=== PATIENT | female | born 1950 | race Caucasian/White ===

== ENCOUNTER 2023-01-27 16:24 | Inpatient (IN) | payer MEDICARE ==
[~2023-01-27] VITALS: Ht 167.6 cm; Wt 61.2 kg
--- NOTE | 2023-01-27 16:44 | NUR ---
TIO JOHNSON FROM [facility] FOR "AGGRESSIVE" BEHAVIOR. THE PATIENT IS CALM AND COOPERATIVE AT THIS TIME. DENIES PAIN. IN ROOM AIR AND DENIES SOB. RESPIRATION REGULAR AND UNLABORED. SITTER AT THE BEDSIDE. WILL CONTINUE TO MONITOR THE PATIENT.
--- NOTE | 2023-01-27 16:46 | NUR ---
URINE COLLECTED AND SENT TO THE LAB
--- NOTE | 2023-01-27 16:48 | NUR ---
COVID SWAB TAKEN AND SEND TO LAB
[2023-01-27 17:23] LABS: BASOPHILS # (AUTO) 0.1 K/uL (0.0-0.2); BASOPHILS % (AUTO) 0.9 % (0.0-2.0); EOSINOPHILS % (AUTO) 0.6 % (0.0-6.0); HEMATOCRIT 36 % (33-45); HEMOGLOBIN 11.7 g/dL (11.5-14.8); LYMPHOCYTES # (AUTO) 2.8 K/uL (0.8-4.8); LYMPHOCYTES % (AUTO) 32.2 % (20.0-44.0); MEAN CORPUSCULAR HGB CONC 33 g/dl (31.0-36.0); MEAN CORPUSCULAR VOLUME 100 fL (82-100); MONOCYTES # (AUTO) 0.9 K/uL (0.1-1.30); MONOCYTES % (AUTO) 9.8 % (2.0-12.0); NEUTROPHILS % (AUTO) 56.5 % (43.0-81.0); PLATELET COUNT (AUTO) 59 K/uL (150-450); RED BLOOD CELL COUNT(AUTO) 3.55 MIL/uL (4.0-5.2); WHITE BLOOD COUNT (AUTO) 8.8 K/uL (4.3-11.0)
[2023-01-27 17:27] LABS: BILIRUBIN,URINE NEGATIVE (NEGATIVE); COLOR,URINE YELLOW (YELLOW); LEUKOCYTE ESTERASE ,URINE TRACE (NEGATIVE); NITRITE, URINE NEGATIVE (NEGATIVE); PH,URINE 6.5 (5.0-8.0); PROTEIN,URINE NEGATIVE (NEGATIVE); UGLUCOSE NEGATIVE (NEGATIVE); UROBILINOGEN,URINE 0.2 EU/dL (0.2)
[2023-01-27 17:49] LABS: ALANINE AMINOTRANSFERASE 20 U/L (12-78); ALBUMIN 3.2 g/dL (3.4-5.0); ALKALINE PHOSPHATASE 85 U/L (46-116); ASPARTATE AMINOTRANSFERASE 16 U/L (15-37); BILIRUBIN,DIRECT 0.1 mg/dL (0.0-0.2); BILIRUBIN,TOTAL 0.2 mg/dL (0.2-1.0); CARBON DIOXIDE 25 mmol/L (21-32); CHLORIDE 107 mmol/L (98-107); GLUCOSE 146 mg/dL (74-106); POTASSIUM 4.1 mmol/L (3.5-5.1); SODIUM SERUM 141 mmol/L (136-145); TOTAL PROTEIN, SERUM 6.7 g/dL (6.4-8.2); UREA NITROGEN, BLOOD 22 mg/dL (7-18)
[2023-01-27] MEDS ORDERED: TEMA15CA5 PO (17:49)
[2023-01-27] MEDS ORDERED: HYDR-4076 PO (17:49)
[2023-01-27] MEDS ORDERED: MAGN400O6 PO (17:49)
[2023-01-27] MEDS ORDERED: BISA10SU11 RC (17:49)
[2023-01-27] MEDS ORDERED: METO25TA6 PO (17:49)
[2023-01-27] MEDS ORDERED: LORA-259 PO (17:49)
[2023-01-27] MEDS ORDERED: ACET325T53 PO (17:49)
[2023-01-27] MEDS ORDERED: DIVA500T2 PO (17:49)
[2023-01-27] MEDS ORDERED: RISP1TAB7 PO (17:49)
[2023-01-27] MEDS ORDERED: DOCU-141 PO (17:49)
[2023-01-27] MEDS ORDERED: CRAN400C PO (17:49)
[2023-01-27] MEDS ORDERED: BENZ0.5T43 PO (17:49)
[2023-01-27] MEDS ORDERED: MINE133E RC (17:49)
[2023-01-27 17:54] LABS: ALCOHOL, BLOOD < 3 mg/dL (0-10)
[2023-01-27 17:59] LABS: BACTERIA,URINE Moderate /HPF (None Seen); SQUAMOUS EPITHELIAL CELL,UR Rare /HPF (None Seen)
--- NOTE | 2023-01-27 18:14 | NUR ---
PER PATIENT - [phone] CANDACE KAHN
[2023-01-27 18:18] LABS: LYMPHOCYTES % (MANUAL) 32 % (16-48); MONOCYTES % (MANUAL) 14 % (0-11.0); NEUTROPHILS % (MANUAL) 54 (42-76)
--- NOTE | 2023-01-27 18:18 | NUR ---
PT GETTING INCREASINGLY AGITATED CLAIMS SHE "DOESNT WANT A LOBOTOMY PERFORMED" ON HER AND ATTEMPTING TO GET OUT OF BED, SITTER WAITING BEDSIDE.
--- NOTE | 2023-01-27 18:27 | NUR ---
FLOR BOYKIN SISTER - [phone]
[2023-01-27] MEDS ORDERED: OLANZAPINE 10 MG VIAL IM ONE ×2 (18:30→18:39)
[2023-01-27] MEDS ORDERED: LORAZEPAM INJ 2 MG/ML VIAL IM ONE (18:30)
[2023-01-27] MEDS ORDERED: LORAZEPAM INJ 2 MG/ML VIAL ONE (18:40)
--- NOTE | 2023-01-27 21:30 | NUR ---
PT AGGRESSIVE, TRYING TO GET OUT OF BED AND STATES "I DON'T WANT THE SURGEONS TO DO AN OPERATION ON ME" SITTER PRECAUTIONS IN PLACE.
--- NOTE | 2023-01-27 21:33 | NUR ---
PT PROVIDED WITH WARM BLANKET FOR COMFORT.
--- NOTE | 2023-01-28 | NUR ---
PT PROVIDED WITH WATER AND JUICE FOR COMFORT.
[2023-01-28] MEDS ORDERED: LORAZEPAM INJ 2 MG/ML VIAL IM ONE (01:30)
[2023-01-28] MEDS ORDERED: LORAZEPAM INJ 2 MG/ML VIAL ONE (01:31)
--- NOTE | 2023-01-28 03:31 | NUR ---
REPORT GIVEN TO BEN RODRIGUEZ FOR CONTINUATION OF CARE.
--- NOTE | 2023-01-28 03:43 | NUR ---
pt to gps via [facility].
[2023-01-28 03:58] VITALS: BP 128/79; TEMP 98.4; O2SAT 98
--- NOTE | 2023-01-28 03:58 | NUR ---
RN NOTES : ADMISSION NOTES: ADMITTED THIS 81Y/O FEMALE PATIENT ADMITTED FROM [facility] ED , INITIALLY FROM [facility] ADMITTED TO 5150 HOLD PER HOLD, DEMENTIA,PSYCHOSIS AND DEPRESSIVE DELUSIONAL BEHAVIOR ,UPON FACE TO FACE ASSESSMENT PATIENT IS A&OX1,2 , PARANOID,DELUSIONAL ,ANXIOUS EASILY AGITATED ,TALKING TO SELF ,DENIES SI /HI AT THIS TIME, PT. IS POOR HISTORIAN, POOR INSIGHT ,POOR JUDGEMENT , BOTH MD AWARE AND NOTIFIED OF THE ADMISSION, BELONGINGS CONTRABAND WERE DONE ,PT. REFUSED SIGNS ADMISSION CONSENT PAPER DUE TO CONFUSED , PT. RIGHTS DISCUSS BY BULLET CASTING OPERATOR , PROVIDE THE PT. WITH HANDBOOK, AND MEDICATIONS GUIDE, ENVIRONMENTAL SAFETY CHECK DONE.THE BED IS LOWER POSITION .WILL CONTINUE TO MONITOR FOR SAFETY. Addendum: 01/28/23 at 0642 by CAMDEN SUERO RN 72 Y/O FEMALE
[2023-01-28] MEDS ORDERED: LORAZEPAM 0.5 MG TABLET PO PRN (04:00)
[2023-01-28] MEDS ORDERED: MAGNESIUM HYDROXIDE 30 ML UDC PO PRN ×2 (04:00→07:30)
[2023-01-28] MEDS ORDERED: ACETAMINOPHEN 325 MG TABLET PO PRN ×2 (04:00→07:30)
[2023-01-28] MEDS ORDERED: BLOOD SUGAR DIAGNOSTIC 1 EACH STRIP IN ONE (04:00)
[2023-01-28] MEDS ORDERED: MAG HYDROX/AL HYDROX/SIMETH 30 ML UDC PO PRN (04:00)
[2023-01-28] MEDS ORDERED: hydrALAZINE HCL 25 MG TABLET PO PRN (07:30)
[2023-01-28] MEDS ORDERED: MINERAL OIL 133 ML (PYXIS) 1 EA ENEMA RC PRN (07:30)
[2023-01-28] MEDS ORDERED: BISACODYL SUPP (10 MG) 10 MG/SUPP.RECT SUPP.RECT RC PRN (07:30)
[2023-01-28 08:00] VITALS: BP_SYST 124; BP_SYST 151; BP_DIAS 68; BP_DIAS 71; TEMP 97.7; TEMP 97.8; O2SAT 96
[2023-01-28] MEDS ORDERED: Medication Not On Formulary EA (Cranberry 400 MG) PO SCH (09:00)
[2023-01-28] MEDS: DOCUSATE SODIUM 100 MG CAPSULE PO SCH (09:34)
[2023-01-28] MEDS: METOPROLOL TARTRATE 25 MG TABLET PO SCH ×2 (09:35→17:30)
--- NOTE | 2023-01-28 09:36 | NUR ---
WAYNE Initial Discharge Note: Patient currently resides at assisted living located at [address] [place], [place] [id number]; ([phone]). WAYNE will call facility to see if pt is welcomed back. WAYNE will contact pt's sister in law Gabriel ([phone]) to discuss treatment/discharge plan. WAYNE will work with the MD, family, and treatment team to help coordinate appropriate discharge.
--- NOTE | 2023-01-28 09:36 | NUR ---
WAYNE Clinical Note: Pt placed on a 5150 hold for GD. Per hold, pt was aggressive at the facility and was acting bizarre. Patient currently resides at [facility] living located at [address] [place] [address]; ([phone]). WAYNE will call facility to see if pt is welcomed back. WAYNE will contact pt's sister in law Nery ([phone]) to discuss treatment/discharge plan.
--- NOTE | 2023-01-28 09:37 | NUR ---
Facility Contact: Pt currently resides at [facility] [address] [place] [address] ([phone]). SW spoke with admin Nneka who stated pt is welcomed back upon discharge.
--- NOTE | 2023-01-28 11:15 | NUR ---
MOTION PICTURE CRITIC NOTE PATIENT WAS TRANSFERRED TO ROOM#218-B, PER PATIENT REQUEST TO BE IN DIFFERENT ROOM WITH DIFFERENT ROOM- PARTNER. NOTIFIED TO PATIENT'S SISTER FLOR.
[2023-01-28] MEDS: DIVALPROEX SODIUM 125 MG CAP.SPRINK PO SCH ×2 (14:09→21:01)
[2023-01-28] MEDS: risperiDONE 1 MG TABLET PO SCH ×2 (14:10→17:28)
[2023-01-28 16:00] VITALS: BP_SYST 131; BP_SYST 149; BP_DIAS 71; BP_DIAS 87; TEMP 97.8; TEMP 98.6; O2SAT 97
[2023-01-28] MEDS: BENZTROPINE MESYLATE (1 MG) 1 MG TABLET PO SCH (17:30)
--- NOTE | 2023-01-28 18:40 | NUR ---
YARN SIZER CLOSING NOTE PATIENT AWAKE, ALERT AND ORIENTED X3. COOPERATIVE, TOOK ALL HER MEDICATIONS. CALM, DENIES PAIN AT PRESENT. AMBULATORY. NO S/S OF DISCOMFORT NOTED. SAFETY MEASURES IN PLACE: BED LOCKED TO THE LOWEST POSITION, TABLE WITHIN REACH. I WILL ENDORSE TO THE FOLLOWING NURSE FOR PERLA.
[2023-01-28 20:00] VITALS: BP 114/76; TEMP 97.6; O2SAT 97
--- NOTE | 2023-01-28 22:27 | NUR ---
MAINT MECHANIC NOTE: RECEIVED PATIENT IN BED RESTING QUIETLY AWAKE.A/OX2 , ABLE TO MAKE NEEDS KNOWN. BREATHING NON-LABORED WITH EQUAL RISE AND FALL OF THE CHEST.PATIENT IS DISPLAYING WITH EQUAL RISE AND FALL OF THE CHEST,NO S/S OF APPARENT DISTRESS. PATIENT IS ANXIOUS COOPERATIVE / UNCOOPERATIVE AT A TIMES, DISORIENTED, HYPERVERBAL LOUD TALKING TO SELF CONFUSED, PARANOID EASILY AGITATED, AGGRESSIVE, GUARDED, NEEDY, ATTENTION SEEKING, AND SUSPICIOUS. PATIENT IS MEDICATION COMPLIANT. NEEDS FREQUENT REDIRECTION. DENIES SI/HI BUT IS CONFUSED AT THIS TIME. SAFETY PRECAUTIONS MAINTAINED WILL CONTINUE TO MONITOR Q 15 MINUTES FOR SAFETY AND BEHAVIOR.
[2023-01-29 06:45] LABS: ALBUMIN 2.9 g/dL (3.4-5.0); BILIRUBIN,TOTAL 0.2 mg/dL (0.2-1.0); CREATININE 0.9 mg/dL (0.6-1.3); POTASSIUM 4.4 mmol/L (3.5-5.1); TOTAL PROTEIN, SERUM 6.2 g/dL (6.4-8.2)
[2023-01-29 06:49] LABS: CHOLESTEROL 188 mg/dL (<200); HDL CHOLESTEROL 77 mg/dL (40-60); LDL 76 mg/dL (0-99); TRIGLYCERIDES 108 mg/dL (30-150)
--- NOTE | 2023-01-29 07:00 | NUR ---
INFORMATICA ARCHITECT OPENINT NOTE PATIENT AWAKE, ALERT AND ORIENTED X3. PATIENT CALM AT PRESENT. PATIENT DENIES PAIN. NO S/S OF DISCOMFORT NOTED. SAFETY MEASURES IN PLACE: BED LOCKED TO THE LOWEST POSITION, TABLE WITHIN REACH. PATIENT IS AMBULATING IN HER ROOM. GAIT STEADY NOTED. CONT. TO MONITOR.
[2023-01-29 08:00] VITALS: BP 112/76; TEMP 97.7; O2SAT 99
[2023-01-29] MEDS: BENZTROPINE MESYLATE (1 MG) 1 MG TABLET PO SCH ×2 (09:54→17:19)
[2023-01-29] MEDS: DOCUSATE SODIUM 100 MG CAPSULE PO SCH (09:54)
[2023-01-29] MEDS: DIVALPROEX SODIUM 125 MG CAP.SPRINK PO SCH ×2 (09:55→20:47)
[2023-01-29] MEDS: risperiDONE 1 MG TABLET PO SCH ×3 (09:55→17:19)
[2023-01-29] MEDS: METOPROLOL TARTRATE 25 MG TABLET PO SCH ×2 (09:55→17:20)
[2023-01-29 16:00] VITALS: BP 138/82; TEMP 98; O2SAT 94
--- NOTE | 2023-01-29 16:03 | NUR ---
WAYNE Family Contact: WAYNE contacted pt's person to notify ([phone]) and spoke with pt's sister in law Nery. Pt will return back to [facility].
--- NOTE | 2023-01-29 17:00 | NUR ---
RESIDENCE LEASING AGENT CLOSING NOTE PATIENT AWAKE, ORIENTED X3. CALM AT PRESENT. NO S/S OF DISCOMFORT NOTED. PATIENT DENIES PAIN. PATIENT IS AMBULATORY. SAFETY MEASURES IN PLACE: BED LOCKED TO THE LOWEST POSITION, TABLE WITHIN REACH. I WILL ENDORSE TO THE FOLLOWING NURSE FOR PERLA.
[2023-01-29 20:00] VITALS: BP 128/83; TEMP 98.1; O2SAT 98
[2023-01-29] MEDS: TEMAZEPAM 7.5 MG CAPSULE PO PRN (23:05)
--- NOTE | 2023-01-29 23:06 | NUR ---
RN NOTES: INSOMNIA PT.C/O UNABLE TO SLEEP PRN RESTORIL 7.5 MG PO GIVEN PER PT. REQUEST , WILL CONTINUE TO MONITOR.
--- NOTE | 2023-01-30 07:00 | NUR ---
OSTOMY NURSE OPENING NOTE PATIENT AWAKE, ORIENTED X3, WITH PERIODS OF CONFUSION. PATIENT STATED" I AM LATE FOR MY DOCTOR'S APPOINTMENT". PATIENT RE-ORIENTED TO ROOM, SURROUNDING, PLACE, DATE, TIME AND PURPOSE WHY THE PATIENT IS IN THE HOSPITAL. PATIENT ANXIOUS AND REFUSING TO UNDERSTAND INFORMATION. PATIENT TAKEN TO HER ROOM, RE-ORIENTED TO HER ROOM. PATIENT WENT TO BED TO SLEEP. PATIENT IS AMBULATORY. SAFETY MEASURES IN PLACE: BED LOCKED TO THE LOWEST POSITION. TABLE WITHIN REACH. CONT. TO MONITOR.
[2023-01-30 08:00] VITALS: BP 137/86; TEMP 98; O2SAT 97
[2023-01-30] MEDS: DIVALPROEX SODIUM 125 MG CAP.SPRINK PO SCH ×3 (08:28→16:35)
[2023-01-30] MEDS: risperiDONE 1 MG TABLET PO SCH ×3 (08:29→16:37)
[2023-01-30] MEDS: DOCUSATE SODIUM 100 MG CAPSULE PO SCH (08:29)
[2023-01-30] MEDS: BENZTROPINE MESYLATE (1 MG) 1 MG TABLET PO SCH ×2 (08:29→16:36)
[2023-01-30] MEDS: METOPROLOL TARTRATE 25 MG TABLET PO SCH ×2 (08:30→16:37)
[2023-01-30 16:00] VITALS: BP 131/86; TEMP 98; O2SAT 97
--- NOTE | 2023-01-30 18:30 | NUR ---
EMT I/85 CLOSING NOTE PATIENT AWAKE, AMBULATING IN THE HALLWAY WITHOUT S/S OF DISTRESS. SAFETY MEASURES IN PLACE: BED LOCKED TO THE LOWEST POSITION, TABLE WITHIN REACH. I WILL ENDORSE TO THE FOLLOWING NURSE FOR PERLA.
[2023-01-31 08:00] VITALS: BP 135/70; TEMP 97.6; O2SAT 96
[2023-01-31] MEDS: DIVALPROEX SODIUM 125 MG CAP.SPRINK PO SCH ×3 (08:18→17:14)
[2023-01-31] MEDS: DOCUSATE SODIUM 100 MG CAPSULE PO SCH (08:18)
[2023-01-31] MEDS: BENZTROPINE MESYLATE (1 MG) 1 MG TABLET PO SCH ×2 (08:18→17:14)
[2023-01-31] MEDS: risperiDONE 1 MG TABLET PO SCH ×3 (08:18→17:14)
[2023-01-31] MEDS: METOPROLOL TARTRATE 25 MG TABLET PO SCH ×2 (08:19→17:15)
[2023-01-31 16:05] VITALS: BP 140/84; TEMP 97.6; O2SAT 95
--- NOTE | 2023-01-31 18:54 | NUR ---
RN- CLOSING NOTES PATIENT AWAKE, RESTING IN BED, BREATHING EVEN AND NON LABORED WITH NO S/S OF DISTRESS. PATIENT IS COOPERATIVE, GUARDED, ANXIOUS, DEPRESSED, LABILE, NEEDY, FORGETFUL, AND SUSPICIOUS. PATIENT IS MEDICATION COMPLIANT. DENIES SI/HI AT THIS TIME. WILL CONTINUE TO MONITOR Q 15 MINUTES FOR SAFETY AND BEHAVIOR.
[2023-01-31 20:38] VITALS: BP 126/75; TEMP 98.4; O2SAT 97
[2023-01-31] MEDS: TEMAZEPAM 7.5 MG CAPSULE PO PRN (22:10)
[2023-02-01 08:00] VITALS: BP 145/92; TEMP 97.8; O2SAT 98
[2023-02-01] MEDS: BENZTROPINE MESYLATE (1 MG) 1 MG TABLET PO SCH ×3 (08:09→16:25)
[2023-02-01] MEDS: risperiDONE 1 MG TABLET PO SCH ×3 (08:09→16:25)
[2023-02-01] MEDS: DIVALPROEX SODIUM 125 MG CAP.SPRINK PO SCH ×3 (08:09→16:24)
[2023-02-01] MEDS: DOCUSATE SODIUM 100 MG CAPSULE PO SCH ×2 (08:09→08:16)
[2023-02-01] MEDS: METOPROLOL TARTRATE 25 MG TABLET PO SCH ×2 (08:10→16:25)
[2023-02-01 16:00] VITALS: BP 133/95; TEMP 98.2; O2SAT 98
--- NOTE | 2023-02-01 18:37 | NUR ---
RN- CLOSING NOTES PATIENT AWAKE, PACING THE HALLWAY, BREATHING EVEN AND NON LABORED WITH NO S/S OF DISTRESS. PATIENT IS COOPERATIVE/UNCOOPERATIVE AT TIMES, GUARDED, ANXIOUS, DEPRESSED, DISORIENTED, LABILE, DEMANDING, AGGRESSIVE, FORGETFUL, NEEDY, AGITATED, AND SUSPICIOUS. PATIENT IS MEDICATION COMPLIANT. DENIES SI/HI AT THIS TIME. WILL CONTINUE TO MONITOR Q 15 MINUTES FOR SAFETY AND BEHAVIOR.
[2023-02-01 20:06] VITALS: BP 148/91; TEMP 97.9; O2SAT 98
--- NOTE | 2023-02-01 22:09 | NUR ---
RN NOTE PT'S BS IS 425. ADMINISTERED 10 UNITS OF REGULAR INSULIN PER SLIDING SCALE; AND ADMINISTERED 28 UNITS OF LANTUS SCHEDULED DUE AT 2100. CHARGE NURSE, ALEXANDRO, NOTIFIED. WILL RECHECK PT'S BS IN 2 HOURS. Addendum: 02/02/23 at 0026 by ROBERTO DODD RN WRONG PT.
[2023-02-02 07:01] LABS: BASOPHILS % (AUTO) 0.5 % (0.0-2.0); EOSINOPHILS % (AUTO) 2.2 % (0.0-6.0); HEMATOCRIT 35 % (33-45); HEMOGLOBIN 11.6 g/dL (11.5-14.8); LYMPHOCYTES # (AUTO) 2.7 K/uL (0.8-4.8); LYMPHOCYTES % (AUTO) 40.3 % (20.0-44.0); MEAN CORPUSCULAR HGB CONC 34 g/dl (31.0-36.0); MEAN CORPUSCULAR VOLUME 98 fL (82-100); MONOCYTES # (AUTO) 0.8 K/uL (0.1-1.30); MONOCYTES % (AUTO) 12.3 % (2.0-12.0); NEUTROPHILS % (AUTO) 44.7 % (43.0-81.0); PLATELET COUNT (AUTO) 184 K/uL (150-450); RED BLOOD CELL COUNT(AUTO) 3.53 MIL/uL (4.0-5.2); WHITE BLOOD COUNT (AUTO) 6.8 K/uL (4.3-11.0)
[2023-02-02 07:22] LABS: BILIRUBIN,TOTAL 0.3 mg/dL (0.2-1.0); CALCIUM, SERUM 9.2 mg/dL (8.5-10.1); POTASSIUM 4.5 mmol/L (3.5-5.1); TOTAL PROTEIN, SERUM 6.4 g/dL (6.4-8.2)
[2023-02-02 08:00] VITALS: BP 118/64; TEMP 98; O2SAT 99
[2023-02-02] MEDS: BENZTROPINE MESYLATE (1 MG) 1 MG TABLET PO SCH ×2 (08:50→16:42)
[2023-02-02] MEDS: DIVALPROEX SODIUM 125 MG CAP.SPRINK PO SCH ×3 (08:50→16:42)
[2023-02-02] MEDS: DOCUSATE SODIUM 100 MG CAPSULE PO SCH (08:50)
[2023-02-02] MEDS: risperiDONE 1 MG TABLET PO SCH ×3 (08:50→16:42)
[2023-02-02] MEDS: METOPROLOL TARTRATE 25 MG TABLET PO SCH ×2 (08:52→16:43)
[2023-02-02 16:00] VITALS: BP 115/56; TEMP 97.9; O2SAT 100
[2023-02-02 20:04] VITALS: BP 120/56; TEMP 98; O2SAT 98
[2023-02-03 08:00] VITALS: BP 148/87; TEMP 98.2; O2SAT 97
[2023-02-03] MEDS: BENZTROPINE MESYLATE (1 MG) 1 MG TABLET PO SCH ×2 (08:44→17:14)
[2023-02-03] MEDS: DIVALPROEX SODIUM 125 MG CAP.SPRINK PO SCH ×3 (08:44→17:14)
[2023-02-03] MEDS: risperiDONE 1 MG TABLET PO SCH ×3 (08:44→17:13)
[2023-02-03] MEDS: DOCUSATE SODIUM 100 MG CAPSULE PO SCH (08:44)
[2023-02-03] MEDS: METOPROLOL TARTRATE 25 MG TABLET PO SCH ×2 (08:45→17:14)
[2023-02-03] MEDS: LORAZEPAM 1 MG TABLET PO PRN ×2 (09:14→17:13)
--- NOTE | 2023-02-03 09:14 | NUR ---
NURSE NOTE: PT ANXIOUS AND RESTLESS. ATIVAN PO ADMINISTERED ORDERED. PT SHABBIR WELL. WILL CONT TO MONITOR.
--- NOTE | 2023-02-03 10:14 | NUR ---
NURSE NOTE: PT CONT ANXIOUS AND RESTLESS AT THIS TIME. ATIVAN NOT EFFECTIVE. WILL CONT TO MONITOR.
--- NOTE | 2023-02-03 11:09 | NUR ---
NURSE NOTE: PT CONT ANXIOUS, RESTLESS, GRABBING OTHER PTS PROPERTY, DISRUPTIVE TO UNIT, UNABLE TO REDIRECT PT. ATIVAN NOT EFFECTIVE PREVIOUSLY. PT FOCUSED ON GOING TO [place] WITH FRIENDS, PUSHING ON DOOR TO GET OUT. ATTEMPTED MULT TIMES TO REDIRECT PT AND CALM HER DOWN, BUT SHE REFUSED TO LISTEN. DR BEAL WAS NOTIFIED OF PTS ACTION. ORDERED ZYPREXA 5MG IM NOW. ZYPREXA IM WAS GIVEN IN THE [facility] CHEMO AT 1120 . PT IN QUIET ROOM, STARTED CLOSE MONITORING ON PT. WILL CONT TO MONITOR.
[2023-02-03] MEDS ORDERED: OLANZAPINE 10 MG VIAL IM ONE ×2 (11:30→15:30)
--- NOTE | 2023-02-03 12:10 | NUR ---
NURSE NOTE: PT CONT TO BE UNABLE TO BE DIRECTED. ZYPREXA DID CALM PT DOWN FOR A SMALL AMOUNT OF TIME, BUT PT CONT TO BE VERY NEEDY AND HYPERVERBAL, MANIC, FOCUSING ON GOING TO [place] WITH FAMILY. WILL CONT TO MONITOR.
--- NOTE | 2023-02-03 12:13 | NUR ---
Court Notification: SW unable to speak to sister in law Nery ([phone]) to notify of 5250 hearing.
--- NOTE | 2023-02-03 12:14 | NUR ---
Court Hearing: Patient's court hearing for 3460 was today and it was upheld for GD.
[2023-02-03] MEDS: LITHIUM CARBONATE 150 MG CAPSULE PO SCH ×2 (12:38→20:13)
--- NOTE | 2023-02-03 15:10 | NUR ---
NURSE NOTE: PT CONT ANXIOUS, RESTLESS, GRABBING OTHER PTS PROPERTY, DISRUPTIVE TO UNIT, UNABLE TO REDIRECT PT. PT CONT TO BE FOCUSED ON GOING TO [place] WITH FRIENDS. ATTEMPTED MULT TIMES TO REDIRECT PT AND CALM HER DOWN, BUT SHE REFUSED TO LISTEN. DR BEAL WAS NOTIFIED OF PTS ACTION. ORDERED ZYPREXA 5MG IM NOW. ZYPREXA IM WAS GIVEN IN THE [facility] CHEMO AT 1530. PT IN QUIET ROOM, STARTED CLOSE MONITORING ON PT. WILL CONT TO MONITOR.
[2023-02-03 16:00] VITALS: BP 124/79; TEMP 97.8; O2SAT 100
--- NOTE | 2023-02-03 17:15 | NUR ---
NURSE NOTE: PT ANXIOUS AND RESTLESS. ATIVAN PO ADMINISTERED ORDERED. PT SHABBIR WELL. WILL CONT TO MONITOR.
[2023-02-03 20:00] VITALS: BP 104/64; TEMP 97.9; O2SAT 96
[2023-02-03] MEDS: TEMAZEPAM 7.5 MG CAPSULE PO PRN (22:52)
--- NOTE | 2023-02-03 22:52 | NUR ---
RN NOTES: INSOMNIA PATIENT UNABLE TO SLEEP PRN RESTORIL 7.5MG PO GIVEN PER PATIENT REQUEST , WILL CONTINUE TO MONITOR.
[2023-02-04] MEDS: LORAZEPAM 1 MG TABLET PO PRN (00:52)
--- NOTE | 2023-02-04 00:58 | NUR ---
RN NOTE:- ATIVAN PO GIVEN TO PATIENT DUE TO INCREASED AGGRESSION AND NON REDIRECTABLE. ORDERED. WILL CONTINUE TO MONITOR.
[2023-02-04 08:00] VITALS: BP 120/62; TEMP 97.7; O2SAT 98
[2023-02-04] MEDS: LITHIUM CARBONATE 150 MG CAPSULE PO SCH ×2 (09:08→21:21)
[2023-02-04] MEDS: BENZTROPINE MESYLATE (1 MG) 1 MG TABLET PO SCH ×2 (09:08→17:37)
[2023-02-04] MEDS: DOCUSATE SODIUM 100 MG CAPSULE PO SCH (09:08)
[2023-02-04] MEDS: DIVALPROEX SODIUM 125 MG CAP.SPRINK PO SCH ×3 (09:08→17:37)
[2023-02-04] MEDS: risperiDONE 1 MG TABLET PO SCH ×4 (09:10→21:21)
[2023-02-04] MEDS: METOPROLOL TARTRATE 25 MG TABLET PO SCH ×2 (09:10→17:38)
--- NOTE | 2023-02-04 11:08 | NUR ---
GPS RN NOTE: PT IN BED. SLEEPING EASILY AROUSABLE TO VERBAL AND TACTILE STIMULI. PT IS AOX1-2 WITH PERIODS OF FORGETFUL, ANXIOUS, EASILY AGITATED, DISORGANIZED, ISOLATIVE AT TIMES. AND HYPERVERBAL. PT ABLE TO MAKE NEEDS KNOWN. NO RESP DISTRESS NOTED. SKIN WARM AND DRY TO TOUCH. NEEDS ATTENDED PROMPTLY. CALL LIGHT WITHIN REACH. BED KEPT LOW AND LOCK FOR SAFETY.
[2023-02-04 16:00] VITALS: BP 119/71; TEMP 98.1; O2SAT 96
--- NOTE | 2023-02-04 18:21 | NUR ---
RN-CO: DR MCNALLY MADE AWARE BY PRIMARY RN REGARDING NEURO CONSULT.
--- NOTE | 2023-02-04 19:30 | NUR ---
GPS RN NOTE, RECEIVED PATIENT AWAKE AND IN BED, NO S/S OR COMPLAINTS OF PAIN AT THIS TIME. PATIENT IS DISPLAYING NO S/S OF APPARENT DISTRESS AT THIS TIME. PATIENT BREATHING IS UNLABORED WITH EQUAL RISE AND FALL OF THE CHEST. PATIENT IS ALERT AND ORIENTED X 1-2 ON ROOM AIR WITH A SPO2 96%. PATIENT IS COMPLAINT WITH MEDICATIONS, CONFUSED AT TIMES, DELUSIONAL AT TIMES, ANXIOUS AT TIMES, MAKES NEEDS KNOWN, UNMOTIVATED TO SELF CARE, NEEDS LOTS OF REDIRECTION, AND IS UNCOOPERATIVE. PATIENT DENIES SUICIDAL AND HOMICIDAL IDEATIONS AT THIS TIME. PATIENT ASSISTED WITH TURNING AND REPOSITIONING Q2HR AND PRN FOR COMFORT AND CIRCULATION. PATIENT HAS NO NEEDS AT THIS TIME. PATIENT EDUCATED ON THE USE OF THE CALL SO. PATIENT BED SIDE RAILS UP X 2 FOR SAFETY. PATIENT BED IS LOCKED, LOW, WITH BED ALARM ON. WILL CONTINUE TO MONITOR THIS PATIENT Q15 MINUTES WITH THE HELP OF STAFF TO MAINTAIN SAFETY.
[2023-02-04 20:00] VITALS: BP 104/59; TEMP 97.9; O2SAT 98
[2023-02-05 08:00] VITALS: BP 115/75; TEMP 97.9; O2SAT 96
[2023-02-05] MEDS: BENZTROPINE MESYLATE (1 MG) 1 MG TABLET PO SCH ×2 (08:06→17:14)
[2023-02-05] MEDS: DIVALPROEX SODIUM 125 MG CAP.SPRINK PO SCH ×3 (08:06→17:14)
[2023-02-05] MEDS: DOCUSATE SODIUM 100 MG CAPSULE PO SCH (08:06)
[2023-02-05] MEDS: risperiDONE 1 MG TABLET PO SCH ×4 (08:06→21:35)
[2023-02-05] MEDS: LITHIUM CARBONATE 150 MG CAPSULE PO SCH ×3 (08:06→21:36)
[2023-02-05] MEDS: METOPROLOL TARTRATE 25 MG TABLET PO SCH ×2 (08:11→17:00)
[2023-02-05] MEDS: LORAZEPAM 1 MG TABLET PO PRN (08:39)
--- NOTE | 2023-02-05 08:39 | NUR ---
NURSE NOTE: PT ANXIOUS AT THIS TIME. ATIVAN PO ADMINISTERED ORDERED. PT SHABBIR WELL. WILL CONT TO MONITOR.
--- NOTE | 2023-02-05 09:39 | NUR ---
NURSE NOTE: PT RESTING AT THIS TIME. ATIVAN EFFECTIVE. WILL CONT TO MONITOR.
[2023-02-05 11:50] LABS: THYROID STIMULATING HORMONE 2.547 uIU/mL (0.358-3.74)
[2023-02-05 16:00] VITALS: BP 113/56; TEMP 97.6; O2SAT 98
[2023-02-05 20:22] VITALS: BP 130/86; TEMP 97.9; O2SAT 100
--- NOTE | 2023-02-05 20:34 | NUR ---
MAINTENANCE CUSTODIAN NOTE: RECEIVED PATIENT ON HER ROOM CONFUSED. BREATHING NON-LABORED WITH EQUAL RISE AND FALL OF THE CHEST.PATIENT IS DISPLAYING WITH EQUAL RISE AND FALL OF THE CHEST,NO S/S OF APPARENT DISTRESS. PATIENT IS ANXIOUS COOPERATIVE / UNCOOPERATIVE AT A TIMES, DISORIENTED, HYPERVERBAL LOUD TALKING TO SELF , PARANOID EASILY AGITATED, AGGRESSIVE, GUARDED, NEEDY, ATTENTION SEEKING, AND SUSPICIOUS. PATIENT IS MEDICATION COMPLIANT. NEEDS FREQUENT REDIRECTION. DENIES SI/HI BUT IS CONFUSED AT THIS TIME. SAFETY PRECAUTIONS MAINTAINED WILL CONTINUE TO MONITOR Q 15 MINUTES FOR SAFETY AND BEHAVIOR.
[2023-02-05] MEDS: TEMAZEPAM 7.5 MG CAPSULE PO PRN (23:46)
--- NOTE | 2023-02-05 23:48 | NUR ---
MASTER TAX ADVISOR NOTE:PATIENT UNABLE TO SLEEP PRN RESTORIL 7.5MG PO GIVEN PER PATIENT REQUEST , WILL CONTINUE TO MONITOR.
[2023-02-06] MEDS: LORAZEPAM 1 MG TABLET PO PRN ×3 (01:39→15:12)
--- NOTE | 2023-02-06 01:40 | NUR ---
NURSE NOTE: PT ANXIOUS AT THIS TIME. ATIVAN PO ADMINISTERED ORDERED. PT SHABBIR WELL. WILL CONT TO MONITOR.
[2023-02-06 07:10] LABS: BASOPHILS % (AUTO) 0.2 % (0.0-2.0); EOSINOPHILS % (AUTO) 2.7 % (0.0-6.0); HEMATOCRIT 35 % (33-45); HEMOGLOBIN 11.5 g/dL (11.5-14.8); LYMPHOCYTES # (AUTO) 3.1 K/uL (0.8-4.8); LYMPHOCYTES % (AUTO) 36.2 % (20.0-44.0); MEAN CORPUSCULAR HGB CONC 33 g/dl (31.0-36.0); MEAN CORPUSCULAR VOLUME 101 fL (82-100); MONOCYTES % (AUTO) 11.9 % (2.0-12.0); NEUTROPHILS # (AUTO) 4.1 K/uL (1.8-8.9); PLATELET COUNT (AUTO) 160 K/uL (150-450); RED BLOOD CELL COUNT(AUTO) 3.48 MIL/uL (4.0-5.2); WHITE BLOOD COUNT (AUTO) 8.4 K/uL (4.3-11.0)
--- NOTE | 2023-02-06 07:50 | NUR ---
NURSE NOTE: PT ANXIOUS AT THIS TIME, WANDERING AROUND IN UNIT, RESTLESS. UNABLE TO REDIRECT. ATIVAN PO ADMIN ORDERED. WILL CONT TO MONITOR.
[2023-02-06 08:00] VITALS: BP 102/65; TEMP 98.9; O2SAT 98
[2023-02-06] MEDS: DIVALPROEX SODIUM 125 MG CAP.SPRINK PO SCH ×3 (08:17→17:23)
[2023-02-06] MEDS: risperiDONE 1 MG TABLET PO SCH ×4 (08:17→21:09)
[2023-02-06] MEDS: LITHIUM CARBONATE 150 MG CAPSULE PO SCH ×3 (08:17→21:09)
[2023-02-06] MEDS: BENZTROPINE MESYLATE (1 MG) 1 MG TABLET PO SCH ×2 (08:17→17:23)
[2023-02-06] MEDS: DOCUSATE SODIUM 100 MG CAPSULE PO SCH (08:17)
[2023-02-06] MEDS: METOPROLOL TARTRATE 25 MG TABLET PO SCH ×3 (08:18→17:24)
--- NOTE | 2023-02-06 09:00 | NUR ---
NURSE NOTE: PT RESTING AT THIS TIME. ATIVAN EFFECTIVE. WILL CONT TO MONITOR.
--- NOTE | 2023-02-06 15:15 | NUR ---
NURSE NOTE: PT ANXIOUS AT THIS TIME. RESTLESS. UNABLE TO REDIRECT. ATIVAN PO ADMIN ORDERED. WILL CONT TO MONITOR.
[2023-02-06 16:00] VITALS: BP 150/71; TEMP 98; O2SAT 99
--- NOTE | 2023-02-06 16:15 | NUR ---
NURSE NOTE: PT IN SHOWER AT THIS TIME. SL CALMER AT THIS TIME. WILL CONT TO MONITOR.
--- NOTE | 2023-02-06 20:05 | NUR ---
BARBER INSTRUCTOR NOTE: RECEIVED PATIENT SITTING UP ON RUBY-CHAIR WITH SAFETY PRECAUTIONS MAINTAINED. BREATHING NON-LABORED WITH EQUAL RISE AND FALL OF THE CHEST.PATIENT IS DISPLAYING WITH EQUAL RISE AND FALL OF THE CHEST,NO S/S OF APPARENT DISTRESS. PATIENT IS ANXIOUS COOPERATIVE / UNCOOPERATIVE AT A TIMES, DISORIENTED, HYPERVERBAL LOUD TALKING TO SELF , PARANOID EASILY AGITATED, AGGRESSIVE, GUARDED, NEEDY, ATTENTION SEEKING, AND SUSPICIOUS. PATIENT IS MEDICATION COMPLIANT. NEEDS FREQUENT REDIRECTION. DENIES SI/HI BUT IS CONFUSED AT THIS TIME. SAFETY PRECAUTIONS MAINTAINED WILL CONTINUE TO MONITOR Q 15 MINUTES FOR SAFETY AND BEHAVIOR.
[2023-02-06 20:26] VITALS: BP 101/70; TEMP 98.1; O2SAT 99
[2023-02-06] MEDS: TEMAZEPAM 7.5 MG CAPSULE PO PRN (23:11)
--- NOTE | 2023-02-06 23:12 | NUR ---
NOTE.PATIENT UNABLE TO SLEEP.PATIENT REQUESTED RESTORIL TO HELP HER TO SLEEP .GIVEN RESTORIL 7.5 MG PO ORDER.WILL CONTINUE TO MONITOR
[2023-02-07] MEDS: LORAZEPAM 1 MG TABLET PO PRN ×3 (03:34→14:59)
--- NOTE | 2023-02-07 03:44 | NUR ---
NURSE NOTE: PT ANXIOUS AT THIS TIME. RESTLESS. UNABLE TO REDIRECT. ADMINISTERED ATIVAN PO ORDERED. WILL CONT TO MONITOR.
[2023-02-07 08:00] VITALS: BP 102/55; TEMP 97.7; O2SAT 98
[2023-02-07] MEDS: BENZTROPINE MESYLATE (1 MG) 1 MG TABLET PO SCH ×2 (09:00→17:16)
[2023-02-07] MEDS: LITHIUM CARBONATE 150 MG CAPSULE PO SCH ×3 (09:00→21:30)
[2023-02-07] MEDS: DOCUSATE SODIUM 100 MG CAPSULE PO SCH (09:00)
[2023-02-07] MEDS: METOPROLOL TARTRATE 25 MG TABLET PO SCH ×2 (09:00→17:16)
[2023-02-07] MEDS: DIVALPROEX SODIUM 125 MG CAP.SPRINK PO SCH ×3 (09:00→17:16)
--- NOTE | 2023-02-07 09:00 | NUR ---
NURSE NOTE: PT ANXIOUS AND RESTLESS AT THIS TIME. ATIVAN PO ADMINISTERED ORDERED. PT SHABBIR WELL. WILL CONT TO MONITOR.
[2023-02-07] MEDS: risperiDONE 1 MG TABLET PO SCH ×4 (09:01→21:30)
--- NOTE | 2023-02-07 10:00 | NUR ---
NURSE NOTE: PT SL CALMER AT THIS TIME. STILL CALLING OUT NAMES. PT IN STABLE COND AT THIS TIME. WILL CONT TO MONITOR.
--- NOTE | 2023-02-07 15:00 | NUR ---
NURSE NOTE: PT ANXIOUS AND RESTLESS AT THIS TIME. YELLING OUTLOUD. ATIVAN PO ADMINISTERED ORDERED. PT SHABBIR WELL. WILL CONT TO MONITOR.
[2023-02-07 16:00] VITALS: BP 130/89; TEMP 98.2; O2SAT 96
--- NOTE | 2023-02-07 16:00 | NUR ---
NURSE NOTE: PT SL CALMER AT THIS TIME. STILL CALLING OUT NAMES. PT IN STABLE COND AT THIS TIME. WILL CONT TO MONITOR.
[2023-02-07 20:30] VITALS: BP 140/74; TEMP 98.1; O2SAT 97
[2023-02-08 08:00] VITALS: BP 137/81; TEMP 98.9; O2SAT 99
[2023-02-08] MEDS: BENZTROPINE MESYLATE (1 MG) 1 MG TABLET PO SCH ×2 (08:35→17:15)
[2023-02-08] MEDS: risperiDONE 1 MG TABLET PO SCH ×4 (08:35→22:28)
[2023-02-08] MEDS: LITHIUM CARBONATE 150 MG CAPSULE PO SCH ×3 (08:36→20:25)
[2023-02-08] MEDS: DOCUSATE SODIUM 100 MG CAPSULE PO SCH (08:36)
[2023-02-08] MEDS: DIVALPROEX SODIUM 125 MG CAP.SPRINK PO SCH ×3 (08:36→17:15)
[2023-02-08] MEDS: METOPROLOL TARTRATE 25 MG TABLET PO SCH ×2 (08:37→17:00)
[2023-02-08 16:00] VITALS: BP 105/60; TEMP 97.9; O2SAT 97
[2023-02-08 17:32] LABS: BILIRUBIN,URINE NEGATIVE (NEGATIVE); COLOR,URINE YELLOW (YELLOW); LEUKOCYTE ESTERASE ,URINE 1+ (NEGATIVE); NITRITE, URINE NEGATIVE (NEGATIVE); PH,URINE 6.5 (5.0-8.0); PROTEIN,URINE NEGATIVE (NEGATIVE); UGLUCOSE NEGATIVE (NEGATIVE)
[2023-02-08 17:39] LABS: BACTERIA,URINE 2+ /HPF (None Seen); MUCUS,URINE Few /LPF (None Seen)
--- NOTE | 2023-02-08 18:52 | NUR ---
NURSE NOTE: CLEAN CATCH URINE SPEC COLLECTED AND SENT TO LAB. WILL CONT TO MONITOR.
--- NOTE | 2023-02-08 19:27 | NUR ---
NURSE NOTE: DR BLEVINS INFORMED OF UA RESULTS. BATH SOLUTION MAKER INFORMED. Addendum: 02/09/23 at 0204 by CAMDEN SUERO RN MAEGAN ORDER KEFLEX 500 MG PO BID X 7DAYS CARRIED OUT.
[2023-02-08] MEDS: CEPHALEXIN MONOHYDRATE 500 MG CAPSULE PO SCH (20:26)
[2023-02-08 20:27] VITALS: BP 156/87; TEMP 97.5; O2SAT 95
[2023-02-09 08:00] VITALS: BP 140/80; TEMP 98.7; O2SAT 96
[2023-02-09] MEDS: BENZTROPINE MESYLATE (1 MG) 1 MG TABLET PO SCH ×2 (08:46→17:51)
[2023-02-09] MEDS: CEPHALEXIN MONOHYDRATE 500 MG CAPSULE PO SCH ×2 (08:47→21:32)
[2023-02-09] MEDS: LITHIUM CARBONATE 150 MG CAPSULE PO SCH ×3 (08:47→21:32)
[2023-02-09] MEDS: DOCUSATE SODIUM 100 MG CAPSULE PO SCH (08:47)
[2023-02-09] MEDS: DIVALPROEX SODIUM 125 MG CAP.SPRINK PO SCH ×3 (08:47→17:54)
[2023-02-09] MEDS: LORAZEPAM 1 MG TABLET PO PRN (08:48)
[2023-02-09] MEDS: METOPROLOL TARTRATE 25 MG TABLET PO SCH ×2 (08:48→17:00)
[2023-02-09] MEDS: risperiDONE 1 MG TABLET PO SCH ×4 (08:50→21:32)
[2023-02-09 16:00] VITALS: BP 100/50; TEMP 97.8; O2SAT 99
[2023-02-09 20:00] VITALS: BP 157/96; TEMP 98.6; O2SAT 98
[2023-02-10 08:00] VITALS: BP 125/77; TEMP 97.8; O2SAT 97
[2023-02-10] MEDS: CEPHALEXIN MONOHYDRATE 500 MG CAPSULE PO SCH ×2 (08:53→21:53)
[2023-02-10] MEDS: LITHIUM CARBONATE 150 MG CAPSULE PO SCH ×3 (08:53→21:53)
[2023-02-10] MEDS: DOCUSATE SODIUM 100 MG CAPSULE PO SCH (08:53)
[2023-02-10] MEDS: DIVALPROEX SODIUM 125 MG CAP.SPRINK PO SCH ×3 (08:53→17:56)
[2023-02-10] MEDS: BENZTROPINE MESYLATE (1 MG) 1 MG TABLET PO SCH ×2 (08:54→17:56)
[2023-02-10] MEDS: risperiDONE 1 MG TABLET PO SCH ×4 (08:54→21:53)
[2023-02-10] MEDS: METOPROLOL TARTRATE 25 MG TABLET PO SCH ×2 (08:54→17:55)
[2023-02-10 16:00] VITALS: BP 122/66; TEMP 97.9; O2SAT 96
[2023-02-10 20:00] VITALS: BP 117/65; TEMP 98.6; O2SAT 97
--- NOTE | 2023-02-10 20:00 | NUR ---
MS RN OPENING NOTES; RECEIVED PATIENT AWAKE IN ROSEANNE CHAIR, NO COMPLAIN OF PAIN AND DISCOMFORT AT THIS TIME, NO COMBATIVE BEHAVIOR WAS OBSERVED, ON ROOM AIR SATURATING WELL, PATIENT IS A/O X2-3 ABLE TO MAKE NEEDS KNOWN, KEPT CLEAN AND DRY ALL NEEDS MET WILL CONTINUE TO MONITOR.
[2023-02-11 08:00] VITALS: BP 130/71; TEMP 97.8; O2SAT 98
[2023-02-11] MEDS: DIVALPROEX SODIUM 125 MG CAP.SPRINK PO SCH ×3 (08:44→18:03)
[2023-02-11] MEDS: BENZTROPINE MESYLATE (1 MG) 1 MG TABLET PO SCH ×2 (08:45→18:06)
[2023-02-11] MEDS: CEPHALEXIN MONOHYDRATE 500 MG CAPSULE PO SCH ×2 (08:45→21:58)
[2023-02-11] MEDS: LITHIUM CARBONATE 150 MG CAPSULE PO SCH ×3 (08:45→21:58)
[2023-02-11] MEDS: DOCUSATE SODIUM 100 MG CAPSULE PO SCH (08:45)
[2023-02-11] MEDS: risperiDONE 1 MG TABLET PO SCH ×4 (08:46→21:58)
[2023-02-11] MEDS: METOPROLOL TARTRATE 25 MG TABLET PO SCH ×2 (08:47→18:07)
[2023-02-11 16:00] VITALS: BP 134/74; TEMP 97.9; O2SAT 100
[2023-02-11 20:00] VITALS: BP 117/72; TEMP 97.5; O2SAT 98
--- NOTE | 2023-02-11 20:13 | NUR ---
EEG TECH NOTE: RECEIVED PATIENT SITTING UP ON RUBY-CHAIR ASLEEP WITH SAFETY PRECAUTIONS MAINTAINED.A/OX1-2. BREATHING NON-LABORED WITH EQUAL RISE AND FALL OF THE CHEST.PATIENT IS DISPLAYING WITH EQUAL RISE AND FALL OF THE CHEST,NO S/S OF APPARENT DISTRESS. PATIENT IS ANXIOUS COOPERATIVE / UNCOOPERATIVE AT A TIMES, DISORIENTED, HYPERVERBAL LOUD TALKING TO SELF , PARANOID EASILY AGITATED, AGGRESSIVE, GUARDED, NEEDY, ATTENTION SEEKING, AND SUSPICIOUS. PATIENT IS MEDICATION COMPLIANT. NEEDS FREQUENT REDIRECTION. DENIES SI/HI BUT IS CONFUSED AT THIS TIME. SAFETY PRECAUTIONS MAINTAINED WILL CONTINUE TO MONITOR Q 15 MINUTES FOR SAFETY AND BEHAVIOR.
[2023-02-12 08:00] VITALS: BP 117/65; TEMP 98; O2SAT 95
[2023-02-12] MEDS: DOCUSATE SODIUM 100 MG CAPSULE PO SCH (08:29)
[2023-02-12] MEDS: CEPHALEXIN MONOHYDRATE 500 MG CAPSULE PO SCH ×2 (08:29→21:31)
[2023-02-12] MEDS: DIVALPROEX SODIUM 125 MG CAP.SPRINK PO SCH ×3 (08:29→16:37)
[2023-02-12] MEDS: LITHIUM CARBONATE 150 MG CAPSULE PO SCH ×3 (08:29→21:31)
[2023-02-12] MEDS: risperiDONE 1 MG TABLET PO SCH ×4 (08:29→21:31)
[2023-02-12] MEDS: BENZTROPINE MESYLATE (1 MG) 1 MG TABLET PO SCH ×2 (08:29→16:37)
[2023-02-12] MEDS: METOPROLOL TARTRATE 25 MG TABLET PO SCH ×3 (08:30→16:39)
[2023-02-12 16:00] VITALS: BP 112/66; TEMP 98; O2SAT 96
--- NOTE | 2023-02-12 18:07 | NUR ---
GPS RN CLOSING NOTE: PATIENT RESTING IN GERICHAIR WITH SAFETY PRECAUTIONS MAINTAINED.A/OX1-2. BREATHING NON-LABORED WITH EQUAL RISE AND FALL OF THE CHEST.PATIENT IS DISPLAYING WITH EQUAL RISE AND FALL OF THE CHEST,NO S/S OF APPARENT DISTRESS. PATIENT IS ANXIOUS COOPERATIVE / UNCOOPERATIVE AT A TIMES, DISORIENTED, HYPERVERBAL LOUD TALKING TO SELF , PARANOID EASILY AGITATED, AGGRESSIVE, GUARDED, NEEDY, ATTENTION SEEKING, AND SUSPICIOUS. PATIENT IS MEDICATION COMPLIANT, ALL MEDS GIVEN ORDERED. NEEDS FREQUENT REDIRECTION. DENIES SI/HI BUT IS CONFUSED AT THIS TIME. SAFETY PRECAUTIONS MAINTAINED WILL CONTINUE TO MONITOR Q 15 MINUTES FOR SAFETY AND BEHAVIOR. WILL ENDORSE TO NEXT SHIFT
[2023-02-12 20:00] VITALS: BP 118/68; TEMP 98.3; O2SAT 96
[2023-02-13 07:39] LABS: BASOPHILS % (AUTO) 0.4 % (0.0-2.0); EOSINOPHILS % (AUTO) 2.5 % (0.0-6.0); HEMATOCRIT 38 % (33-45); HEMOGLOBIN 12.8 g/dL (11.5-14.8); LYMPHOCYTES # (AUTO) 2.7 K/uL (0.8-4.8); LYMPHOCYTES % (AUTO) 36.4 % (20.0-44.0); MEAN CORPUSCULAR HGB CONC 34 g/dl (31.0-36.0); MEAN CORPUSCULAR VOLUME 98 fL (82-100); MONOCYTES # (AUTO) 0.8 K/uL (0.1-1.30); MONOCYTES % (AUTO) 10.5 % (2.0-12.0); NEUTROPHILS # (AUTO) 3.8 K/uL (1.8-8.9); NEUTROPHILS % (AUTO) 50.2 % (43.0-81.0); PLATELET COUNT (AUTO) 164 K/uL (150-450); RED BLOOD CELL COUNT(AUTO) 3.92 MIL/uL (4.0-5.2); WHITE BLOOD COUNT (AUTO) 7.5 K/uL (4.3-11.0)
[2023-02-13 07:53] LABS: ALBUMIN 2.9 g/dL (3.4-5.0); BILIRUBIN,TOTAL 0.2 mg/dL (0.2-1.0); CALCIUM, SERUM 9.1 mg/dL (8.5-10.1); CREATININE 0.9 mg/dL (0.6-1.3); POTASSIUM 4.2 mmol/L (3.5-5.1); TOTAL PROTEIN, SERUM 6.2 g/dL (6.4-8.2)
[2023-02-13 08:00] VITALS: BP 125/70; TEMP 97.8; O2SAT 98
[2023-02-13] MEDS: risperiDONE 1 MG TABLET PO SCH ×4 (09:36→21:50)
[2023-02-13] MEDS: LITHIUM CARBONATE 150 MG CAPSULE PO SCH ×3 (09:36→21:50)
[2023-02-13] MEDS: DOCUSATE SODIUM 100 MG CAPSULE PO SCH (09:36)
[2023-02-13] MEDS: BENZTROPINE MESYLATE (1 MG) 1 MG TABLET PO SCH ×2 (09:36→17:59)
[2023-02-13] MEDS: CEPHALEXIN MONOHYDRATE 500 MG CAPSULE PO SCH ×2 (09:36→21:50)
[2023-02-13] MEDS: DIVALPROEX SODIUM 125 MG CAP.SPRINK PO SCH ×3 (09:36→17:59)
[2023-02-13] MEDS: METOPROLOL TARTRATE 25 MG TABLET PO SCH ×2 (09:37→18:00)
--- NOTE | 2023-02-13 14:30 | NUR ---
yonathan,sitting in shiv chair in dining room.sister calling to check on her.
[2023-02-13 16:00] VITALS: BP 121/68; TEMP 97.9; O2SAT 98
--- NOTE | 2023-02-13 18:29 | NUR ---
no acute distress.
--- NOTE | 2023-02-13 20:10 | NUR ---
RECEPTIONIST CLERK NOTE: RECEIVED PATIENT ASLEEP .A/OX1-2. BREATHING NON-LABORED WITH EQUAL RISE AND FALL OF THE CHEST.PATIENT IS DISPLAYING WITH EQUAL RISE AND FALL OF THE CHEST,NO S/S OF APPARENT DISTRESS. PATIENT IS ANXIOUS COOPERATIVE / UNCOOPERATIVE AT TIMES, DISORIENTED, HYPERVERBAL , PARANOID EASILY AGITATED,PATIENT IS MEDICATION COMPLIANT. NEEDS FREQUENT REDIRECTION. PATIENT IS ASSISTED ON TURNING AND REPOSITIONING Q2H FOR CIRCULATION AND COMFORT.DENIES SI/HI BUT IS CONFUSED AT THIS TIME. BED IN LOWEST,LOCKED POSITION WITH SIDE RAILS UP X2. SAFETY PRECAUTIONS MAINTAINED WILL CONTINUE TO MONITOR Q 15 MINUTES FOR SAFETY AND BEHAVIOR WITH THE HELP OF STAFF.
--- NOTE | 2023-02-14 07:00 | NUR ---
AWNING SPREADER OPENING NOTE PATIENT SLEEPY, SITTING ON RUBY CHAIR, NO S/S OF PAIN OR DISCOMFORT NOTED. PATIENT ORIENTED TO SELF AND PLACE. PATIENT DENIES PAIN AT PRESENT. SAFETY MEASURES IN PLACE: RUBY CHAIR LOCKED FOR SAFETY. BED LOCKED TO THE LOWEST POSITION, TABLE WITHIN REACH. CONT. TO MONITOR.
[2023-02-14 08:00] VITALS: BP 100/62; TEMP 97.5; O2SAT 97
[2023-02-14] MEDS: LITHIUM CARBONATE 150 MG CAPSULE PO SCH ×2 (08:54→13:00)
[2023-02-14] MEDS: DOCUSATE SODIUM 100 MG CAPSULE PO SCH (08:55)
[2023-02-14] MEDS: CEPHALEXIN MONOHYDRATE 500 MG CAPSULE PO SCH ×2 (08:55→21:19)
[2023-02-14] MEDS: METOPROLOL TARTRATE 25 MG TABLET PO SCH ×2 (08:55→18:49)
[2023-02-14] MEDS: risperiDONE 1 MG TABLET PO SCH ×4 (08:55→21:19)
[2023-02-14] MEDS: BENZTROPINE MESYLATE (1 MG) 1 MG TABLET PO SCH ×2 (08:55→18:49)
[2023-02-14] MEDS: DIVALPROEX SODIUM 125 MG CAP.SPRINK PO SCH ×3 (08:55→18:50)
--- NOTE | 2023-02-14 13:00 | NUR ---
SANFORIZER NOTE PATIENT SLEEPY AT PRESENT. NO MEDICATION GIVEN AT PRESENT. I WILL MONITOR LATER PATIENT'S CONDITION. PATIENT IS ON RUBY CHAIR AT PRESENT.
--- NOTE | 2023-02-14 14:13 | NUR ---
CRIMINAL ANALYST NOTE PATIENT TOOK NOON TIME MEDICATION CRUSHED WITH APPLE SOUCE..NO S/S OF ASPIRATION NOTED.
--- NOTE | 2023-02-14 14:13 | NUR ---
CLIENT SUPPORT PROFESSIONAL NOTE I CALLED TO DR. MCKEON THE PATIENT IS SLEEPY. DR. MCKEON SAID, HOLD LITHIUM FOR NOW UNTIL DR. BEAL EVALUATE THE PATIENT TOMORROW.
[2023-02-14 15:59] VITALS: BP 139/62; TEMP 97.9; O2SAT 94
[2023-02-14 16:00] VITALS: BP 139/68; TEMP 97.9; O2SAT 94
--- NOTE | 2023-02-14 18:45 | NUR ---
RUSSIAN HISTORY PROFESSOR CLOSING NOTE PATIENT AWAKE, ABLE TO TAKE HER MEDICATION CRASHED WITH APPLE SAUCE. NO S/S OF ASPIRATION NOTED. PATIENT IS ORIENTED X1 ONLY. LITHIUM IS ON HOLD PER DR. MCKEON UNTIL TOMORROW WHEN DR. BEAL REVIEW PATIENT'S CONDITION. PATIENT HAVE BEEN SLEEPY DURING THE DAY. SAFETY MEASURES IN PLACE: PATIENT RESTING IN BED AT PRESENT. SIDE RAILS UPX4. TABLE WITHIN REACH. I WILL ENDORSE TO THE FOLLOWING NURSE FOR PERLA.
--- NOTE | 2023-02-15 07:01 | NUR ---
RN NOTE; PATIENT LITHIUM WAS ON HOLD UNTIL 02/15 DUE TO DAUGHTER COMPLAINED, PT SLEEPING MOST OF THE TIME,PER MIKE FAGAN,THEN FOLLOW UP TODAY TO EMIGDIO FAGAN,IF HE WANT TO CONTINUE LITHIUM.
[2023-02-15 08:00] VITALS: BP 111/79; TEMP 97.9; O2SAT 99
[2023-02-15] MEDS: BENZTROPINE MESYLATE (1 MG) 1 MG TABLET PO SCH ×2 (08:27→16:40)
[2023-02-15] MEDS: DIVALPROEX SODIUM 125 MG CAP.SPRINK PO SCH ×3 (08:27→16:40)
[2023-02-15] MEDS: risperiDONE 1 MG TABLET PO SCH ×3 (08:27→21:32)
[2023-02-15] MEDS: CEPHALEXIN MONOHYDRATE 500 MG CAPSULE PO SCH (08:27)
[2023-02-15] MEDS: DOCUSATE SODIUM 100 MG CAPSULE PO SCH (08:27)
[2023-02-15] MEDS: METOPROLOL TARTRATE 25 MG TABLET PO SCH ×2 (08:28→16:41)
--- NOTE | 2023-02-15 11:58 | NUR ---
WAYNE Family Contact: SW spoke with pt's sister Cindy ([phone]) and notified of pt's discharge for 09/19 back to [facility] and she was agreeable of this.
--- NOTE | 2023-02-15 12:48 | NUR ---
TEXT FOR MRI APPROVAL.
--- NOTE | 2023-02-15 12:54 | NUR ---
ON HOLD DR. MUNOZ WILL LET US KNOW.
--- NOTE | 2023-02-15 12:55 | NUR ---
MRI ON HOLD FOR NOW, DR. MUNOZ WILL LET US KNOW.
[2023-02-15 16:00] VITALS: BP 97/59; TEMP 97.9; O2SAT 98
--- NOTE | 2023-02-15 18:50 | NUR ---
GPS RN CLOSING NOTE PATIENT AWAKE AND IN THE ACTIVITY AREA. ALERT AND ORIENTED X1-2. WAS ABLE TO SWALLOW WHOLE PILLS. WITH NO S/S OF ASPIRATION NOTED. PATIENT WAS IN THE ACTIVITY AREA THE WHOLE SHIFT. PATIENT IS FOR BRAIN MRI WITHOUT CONTRAST TOMORROW MORNING ORDERED BY HOSPITALIST TIA OLIVARES. ALL DUE MEDS GIVEN. ALL NURSING NEEDS ATTENDED. SAFETY MEASURES IMPLEMENTED: BED LOCKED TO THE LOWEST POSITION. TABLE WITHIN EASY REACH. WILL ENDORSE TO THE LINE WORKER NURSE FOR CONTINUITY OF CARE.
[2023-02-16 00:49] VITALS: BP 110/64; TEMP 98.2; O2SAT 99
[2023-02-16 08:00] VITALS: BP 113/66; TEMP 98.7; O2SAT 100
[2023-02-16] MEDS: BENZTROPINE MESYLATE (1 MG) 1 MG TABLET PO SCH ×2 (08:50→16:31)
[2023-02-16] MEDS: DOCUSATE SODIUM 100 MG CAPSULE PO SCH (08:50)
[2023-02-16] MEDS: DIVALPROEX SODIUM 125 MG CAP.SPRINK PO SCH ×3 (08:51→16:31)
[2023-02-16] MEDS: METOPROLOL TARTRATE 25 MG TABLET PO SCH ×2 (08:51→16:32)
[2023-02-16] MEDS: risperiDONE 1 MG TABLET PO SCH ×3 (08:51→21:07)
--- NOTE | 2023-02-16 11:37 | NUR ---
Court Notification: SW attempted to contact pt sister Cindy ([phone]) to leave a voicemail about the 30 day.
--- NOTE | 2023-02-16 11:38 | NUR ---
Court Hearing: Patient's court hearing for 5270 was today and it was upheld for GD.
[2023-02-16 16:00] VITALS: BP 108/84; TEMP 98.7; O2SAT 100
--- NOTE | 2023-02-16 18:48 | NUR ---
END OF SHIFT REPORT PATIENT UP IN [facility] . NO SIGNS OF ACUTE DISTRESS NOTED. STABLE ON ROOM AIR, BREATHING EVEN AND UNLABORED. DENIED ANY PAIN OR DISCOMFORT. PATIENT IS COOPERATIVE/UNCOOPERATIVE, FORGETFUL, CALM. ATTENDED GROUP ACTIVITIES. MRI OF BRAIN DONE THIS NOON. PATIENT COMPLIANT WITH MEDS. SAFETY MEASURE MAINTAINED. WILL ENDORSE TO NEXT SHIFT FOR CONTINUITY OF CARE.
[2023-02-16 20:30] VITALS: BP 149/70; TEMP 98.3; O2SAT 95
[2023-02-17 08:00] VITALS: BP 116/70; TEMP 97.9; O2SAT 97
[2023-02-17] MEDS: METOPROLOL TARTRATE 25 MG TABLET PO SCH ×2 (08:36→16:34)
[2023-02-17] MEDS: risperiDONE 1 MG TABLET PO SCH ×3 (08:36→21:16)
[2023-02-17] MEDS: BENZTROPINE MESYLATE (1 MG) 1 MG TABLET PO SCH ×2 (08:36→16:33)
[2023-02-17] MEDS: DOCUSATE SODIUM 100 MG CAPSULE PO SCH (08:36)
[2023-02-17] MEDS: DIVALPROEX SODIUM 125 MG CAP.SPRINK PO SCH ×3 (08:36→16:33)
[2023-02-17] MEDS: ASPIRIN 81 MG TAB.CHEW PO SCH (08:45)
--- NOTE | 2023-02-17 10:23 | NUR ---
RN-CO: PATIENT IS AWAKE, SHE IS BETTER THAN LAST WEEK. SHE IS MORE AWAKE, ABLE TO MAKE NEEDS KNOWN. SHE TOOK HER MIGNON AND ATE HER MEALS.SHE DENIED FEELING SUICIDAL, HOMICIDAL. SHE DENIED HEARING VOICES NOR SEEING THINGS THAT ARE NOT THERE. WE WILL CONTINUE PLAN OF CARE.
[2023-02-17 16:00] VITALS: BP 125/74; TEMP 98; O2SAT 99
--- NOTE | 2023-02-17 19:30 | NUR ---
GPS RN NOTE, RECEIVED PATIENT AWAKE AND IN BED, NO S/S OR COMPLAINTS OF PAIN AT THIS TIME. PATIENT IS DISPLAYING NO S/S OF APPARENT DISTRESS AT THIS TIME. PATIENT BREATHING IS UNLABORED WITH EQUAL RISE AND FALL OF THE CHEST. PATIENT IS ALERT AND ORIENTED X 1 ON ROOM AIR WITH A SPO2 97%. PATIENT IS COMPLAINT WITH MEDICATIONS, CONFUSED, PARANOID, ANXIOUS AT TIMES, MAKES NEEDS KNOWN, UNMOTIVATED TO SELF CARE, AND COOPERATIVE. PATIENT DENIES SUICIDAL AND HOMICIDAL IDEATIONS AT THIS TIME. PATIENT ASSISTED WITH TURNING AND REPOSITIONING Q2HR AND PRN FOR COMFORT AND CIRCULATION. PATIENT HAS NO NEEDS AT THIS TIME. PATIENT EDUCATED ON THE USE OF THE CALL SO. PATIENT BED SIDE RAILS UP X 2 FOR SAFETY. PATIENT BED IS LOCKED, LOW, WITH BED ALARM ON. WILL CONTINUE TO MONITOR THIS PATIENT Q15 MINUTES WITH THE HELP OF STAFF TO MAINTAIN SAFETY.
[2023-02-17 20:00] VITALS: BP 125/78; TEMP 98.4; O2SAT 98
[2023-02-18 08:00] VITALS: BP 132/64; TEMP 97.6; O2SAT 99
--- NOTE | 2023-02-18 08:08 | NUR ---
SW Discharge Note: Patient will be discharged to [facility] [address], [place] [address] ([phone]). Please arrange ambulance transportation at 1PM. Spoke with Nneka, Admin Coordinator at the facility who states they are ready to accept the patient today. Patients sister Cindy ([phone]) is aware and agreeable of discharge. Patient is alert and oriented x2. Patient denies any suicidal or homicidal ideation. Patient will follow-up at the facility with Dr. Flores (psychiatrist) [address], [place] [address]; ([phone]) and (Pivot Maker) Dr. Barton [address], [place] [address]; ([phone]). Patient presents with euthymic mood and congruent affect.
[2023-02-18 08:28] VITALS: BP 132/64
[2023-02-18] MEDS: BENZTROPINE MESYLATE (1 MG) 1 MG TABLET PO SCH (08:28)
[2023-02-18] MEDS: ASPIRIN 81 MG TAB.CHEW PO SCH (08:28)
[2023-02-18] MEDS: METOPROLOL TARTRATE 25 MG TABLET PO SCH (08:28)
[2023-02-18] MEDS: risperiDONE 1 MG TABLET PO SCH (08:28)
[2023-02-18] MEDS: DOCUSATE SODIUM 100 MG CAPSULE PO SCH (08:28)
[2023-02-18] MEDS: DIVALPROEX SODIUM 125 MG CAP.SPRINK PO SCH ×2 (08:28→12:13)
--- NOTE | 2023-02-18 13:40 | NUR ---
RN- DISCHARGE NOTES PATIENT DISCHARGED TO [facility], [address], [place] [address], IN STABLE CONDITION. COMPLIANT WITH MEDICATIONS, AND COOPERATIVE WITH TREATMENT PLANS. PATIENT DENIES SUICIDAL/HOMICIDAL IDEATION AND AUDITORY/VISUAL HALLUCINATIONS. BEHAVIOR IMPROVED, PSYCHIATRIC TREATMENT PLANS MET, MEDICAL TREATMENT PLANS DEFERRED FOR CONTINUAL MONITORING. PATIENT IS WITHOUT DISTRESS, CALM, COOPERATIVE, AND VITAL SIGNS TAKEN: B/P 119/58, P 84, R 20, O2 SAT 98% ON ROOM AIR. SKIN INTACT AND NO PHOTOS REQUIRED. EDUCATED PATIENT ABOUT EXIT CARE AND COPY PROVIDED. RETURNED ALL PERSONAL BELONGINGS TO PATIENT. MEDICATIONS RECONCILED WITH PSYCHIATRIST DR. BEAL AND MED PROTEIN SCIENTIST DR. VYAS WITH PSYCHIATRIC DISCHARGE ORDER AND CONTINUATION OF MEDICATIONS INCLUDING PRN'S NOTED. REPORT GIVEN TO JENNIFER KESSLER AT [facility] FOR CONTINUITY OF CARE. PATIENT UNABLE TO SIGN DISCHARGE PAPERWORK DUE TO CONFUSION, CO-SIGNER OBTAINED. PATIENT LEFT THE UNITS AT 1340 VIA AMBULANCE ON A GURNEY.
== END 2023-02-18 13:40 | DRG 885 ==
LOC: ER 16:26 → GPS 01-28 03:23
PROVIDERS: ADMIT Psychiatry & Neurology Psychosomatic Medicine; ATTEND Internal Medicine
DX: F31.64 Bipolar disorder, current episode mixed, severe, with psychotic features (principal); F03.93 Unspecified dementia, unspecified severity, with mood disturbance; F03.94 Unspecified dementia, unspecified severity, with anxiety; F03.92 Unspecified dementia, unspecified severity, with psychotic disturbance; N39.0 Urinary tract infection, site not specified; F41.9 Anxiety disorder, unspecified; E88.09 Other disorders of plasma-protein metabolism, not elsewhere classified; I10 Essential (primary) hypertension; Z79.899 Other long term (current) drug therapy; Z91.81 History of falling; R29.6 Repeated falls; M62.81 Muscle weakness (generalized); R79.89 Other specified abnormal findings of blood chemistry; G93.89 Other specified disorders of brain
CPT/HCPCS: 36415; 70450-TC; 70551-TC; 80048-TC; 80053-TC; 80061-TC; 80076-TC; 80164-TC; 81001; 82607-TC; 82962-TC; 84443-TC; 85025-TC; 87081-TC; 87086-TC; 97110-TC; 97112-TC; 97116-TC; 97530-TC; C9803; G0480; J2060; J3490